=== PATIENT | male | born 1985 | race Asian ===

== ENCOUNTER → 2023-03-11 11:56 | Outpatient (CLI) | payer OTHER, SELFPAY | PROVIDERS: Family Provider Physician Assistant; PCP Physician Assistant; Referring Provider Physician Assistant; Visit Provider Physician Assistant | DX: R20.2 Paresthesia of skin (principal) | CPT/HCPCS: 95886; 95912 ==

== ENCOUNTER → 2025-01-18 09:09 | Outpatient (CLI) | payer OTHER, SELFPAY ==
--- NOTE | 2025-01-18 09:13 | DI.RAD.S_ITS ---
PROCEDURE: XR LUMBAR SPINE MIN 4V INDICATIONS: Chronic low back pain TECHNIQUE: 5 views of the lumbar spine were acquired, including bilateral oblique views. COMPARISON: None. FINDINGS: Bones: 5 nonrib-bearing vertebrae are present. There is normal bony alignment. No acute vertebral body compression fractures. No suspicious bony lesions. Mid and lower lumbar spondylosis most pronounced at L4-5 and L5-S1 with associated facet arthropathy. Soft tissues: Overlying bowel gas pattern is normal. No suspicious soft tissue calcifications. Oblique images: No pars defects. IMPRESSION: Lumbar spine without acute osseous abnormalities or malalignment. Multilevel lower lumbar spondylosis most pronounced at L5-S1 and L4-5. Dictated by: Gregorio Cordero M.D. on 01/18/2025 at 12:50 Approved by: Gregorio Cordero M.D. on 01/18/2025 at 12:51
--- NOTE | 2025-01-18 09:13 | EKG_ITS ---
[facility] [address] [place] [address] Test Date: 2025-01-18 Pat Name: Fidel Danielle Department: Room: Gender: Male Manager Branch: : [id number] Requested By: Order Number: [id number] Reading MD: Jr Hernandez Measurements Intervals [place] Rate: 73 P: 32 FL: 156 QRS: 59 QRSD: 100 T: 25 QT: 392 QTc: 431 Interpretive Statements Normal sinus rhythm Electronically Signed On 02-02-2025 8:07:07 PDT by Jr Hernandez
[2025-01-18 09:59] LABS: Hematocrit 44.8 % (41-53); Hemoglobin 14.3 g/dL (13.5-17.5); Mean Corpuscular HGB Conc 31.9 % (30-36); Mean Corpuscular Hemoglobin 20.8 PG (26-34); Mean Corpuscular Volume 65.1 fL (80-100); Platelet Count 248 X10^3/uL (150-400)
[2025-01-18 10:27] LABS: Alanine Aminotransferase 75 IU/L (<50); Albumin 4.8 g/dL (3.5-5.0); Albumin Globulin Ratio 1.4 (1.0-2.8); Alkaline Phosphatase 82 U/L (38-126); Blood Urea Nitrogen 8 mg/dL (9-20); Calcium 9.4 mg/dL (8.4-10.2); Carbon Dioxide 24 mmol/L (22-32); Chloride 106 mmol/L (98-107); Cholesterol 216 mg/dL (140-199); Estimated Glomerular Filt Rate > 60 mL/min (>60); Globulin 3.5 g/dL (1.7-4.1); Glucose 102 mg/dL (70-99); HDL Cholesterol 37 mg/dL (40-60); HEMOLYSIS < 15 (0-50); Potassium 4.2 mmol/L (3.4-5.1); Sodium 139 mmol/L (137-145); Total Protein 8.3 g/dL (6.3-8.2); Triglycerides 203 mg/dL (35-150)
[2025-01-18 10:37] LABS: Vitamin D 25 Hydroxy (D3) 31.4 ng/mL (30.0-100.0)
[2025-01-18 15:29] LABS: HIV 1 & 2 Ab/Ag 4th Gen Combo NEGATIVE (NEGATIVE); Hep C Virus Ab w/Reflex Quant NEGATIVE s/c (NEGATIVE)
== END ==
PROVIDERS: PCP Family Medicine; Referring Provider Family Medicine; Visit Provider Family Medicine
DX: M51.27 Other intervertebral disc displacement, lumbosacral region (principal); M47.816 Spondylosis without myelopathy or radiculopathy, lumbar region; M47.817 Spondylosis without myelopathy or radiculopathy, lumbosacral region; R07.9 Chest pain, unspecified; Z13.21 Encounter for screening for nutritional disorder; R53.83 Other fatigue; Z13.9 Encounter for screening, unspecified; Z13.220 Encounter for screening for lipoid disorders; Z13.228 Encounter for screening for other metabolic disorders
CPT/HCPCS: 36415; 72110; 80053; 80061; 82306; 85027; 86803; 87389; 93005

== ENCOUNTER → 2025-01-25 16:59 | Outpatient (CLI) | payer OTHER, SELFPAY ==
[2025-01-25 17:31] LABS: Hemoglobin A1C% w Est Avg Glu 5.9 % (4.0-6.0)
[2025-01-25 18:00] LABS: HEMOLYSIS < 15 (0-50); Iron 72 ug/dL (49-181)
[2025-01-25 18:09] LABS: Percent Iron Saturation 25 % (20-50); Total Iron Binding Capacity 287 ug/dL (261-462); Transferrin 249 mg/dL (206-381)
[2025-01-25 18:11] LABS: Ferritin 377 ng/mL (18-464)
== END ==
PROVIDERS: PCP Family Medicine; Referring Provider Family Medicine; Visit Provider Family Medicine
DX: Z13.1 Encounter for screening for diabetes mellitus (principal); R71.8 Other abnormality of red blood cells
CPT/HCPCS: 36415; 82728; 83036; 83540; 83550